=== PATIENT | male | born 1955 | race Caucasian/White ===

== ENCOUNTER → 2017-10-08 | Outpatient (CLI) | payer BC, OTHER | END | disposition home or self-care (01) | LOC: KCIC MRI 08:49 | DX: M12.811 Other specific arthropathies, not elsewhere classified, right shoulder (principal) | CPT/HCPCS: 73221 ==

== ENCOUNTER → 2019-01-17 | Outpatient (CLI) | payer BC, OTHER ==
[2015-11-24 14:00] VITALS: BP 148/94
[~2019-01-17] MED LIST: ALLO300T PO; LEVO200T5 PO; OLME1TAB23 PO
--- NOTE | 2019-01-17 12:56 | KCIC ---
EXAM: Bilateral hands, 3 views. HISTORY: Polyarthralgia. COMPARISON: None. FINDINGS: 3 views of both hands are obtained. There is mild right greater than left first carpometacarpal joint space narrowing with subchondral sclerosis, subchondral cyst formation and marginal spurring. There is left distal radial ulnar joint spurring. There is a corticated ossicle at the base of the right third proximal phalanx, likely due to a chronic nonunited avulsion fracture fragment. There is degenerative spurring involving the right fifth proximal interphalangeal joint and a chronic appearing ossicle at the palmar base of the right third proximal interphalangeal joint. IMPRESSION: 1. Mild bilateral first carpometacarpal, right fifth proximal interphalangeal joint, and distal left radial ulnar joint osteoarthritis. 2. No acute osseous finding. Electronically signed by: Tessa Garrett MD (01/17/2019 12:53 PM) [id number]
== END | disposition home or self-care (01) ==
LOC: KCIC 11:49
PROVIDERS: ATTEND Internal Medicine Rheumatology
DX: M19.042 Primary osteoarthritis, left hand (principal); M19.041 Primary osteoarthritis, right hand; M25.842 Other specified joint disorders, left hand; M77.9 Enthesopathy, unspecified
CPT/HCPCS: 73130

== ENCOUNTER → 2020-04-10 | Outpatient (CLI) | payer BC, OTHER ==
[2015-11-24 14:00] VITALS: BP 148/94
--- NOTE | 2020-04-10 14:58 | KCIC ---
EXAMINATION: MRI RIGHT ANKLE WITHOUT IV CONTRAST CLINICAL HISTORY: Right heel pain. Continued pain plantar and lateral heel. History of right heel inj ury 18mths ago with surgery. TECHNIQUE: Multiplanar multisequential images obtained through the ankle without intravenous contrast . COMPARISON: Right calcaneus radiographs 03/27/2020, right ankle radiographs 03/31/2019 FINDINGS: Anterior Talofibular Ligament: Within normal limits. Posterior Talofibular Ligament: Within normal limits. Anterior-Inferior Tibiofibular Ligament: Within normal limits. Posterior Tibiofibular Ligament: Within normal limits. Calcaneofibular Ligament: Within normal limits. Deltoid Ligament: Within normal limits. Spring Ligament: Within normal limits. Posterior Tibial Tendon: Within normal limits. Flexor Digitorum Longus Tendon: Within normal limits. Flexor Hallucis Longus Tendon: Within normal limits. Tiny ossicle medial to the tendon at the level o f the posterior tibiotalar joint, better appreciated on comparison radiographs. Peroneal Tendons: Within normal limits. Extensor Tendons: Within normal limits. Achilles Tendon: Within normal limits. Bone Marrow: No acute fracture or suspicious marrow replacing process. Talar Dome: 4 mm osteochondral lesion in the lateral talar dome. No definite articular surface depres damari. Plantar Fascia: Mild thickening at the plantar fascial origin with trace edema in the subjacent soft tissues, nonspecific. No increased fascial signal or edema in the subjacent calcaneus. Tarsal Tunnel/Sinus Tarsi: Normal fat signal in the sinus Tarsi replaced with ill-defined intermediat e T1 and heterogeneous increased T2 signal, suggestive of sinus Tarsi syndrome. No associated discret e soft tissue or cystic mass. Tarsal tunnel within normal limits. Joint Fluid: No joint effusion or synovitis. 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 Tiny osteochondral lesion in the lateral talar dome. Electronically signed by: Kwan Jara DO (04/10/2020 2:55 PM) [id number]
== END ==
LOC: KCIC MRI 10:48
PROVIDERS: ATTEND Physician Assistant
DX: M25.871 Other specified joint disorders, right ankle and foot (principal); M79.671 Pain in right foot; M19.071 Primary osteoarthritis, right ankle and foot
CPT/HCPCS: 73718